=== PATIENT | male | born 1950 | race Caucasian/White ===

== ENCOUNTER 2022-10-14 09:56 | Day surgery (SDC) | payer MEDICARE, MEDICAID ==
[~2022-10-14] VITALS: Ht 177.8 cm; Wt 67.1 kg
[2022-10-14] VITALS (9 sets, daily range): BP systolic 115–168; BP diastolic 69–95; PULSE 77–87; RESP 16; TEMP 97.6; O2SAT 93–97
[~2022-10-14 09:56] MED LIST: ATEN25TA PO; ATOR20TA66 PO; BICA50TA48 PO; BUSP10TA10 PO; LOSA50TA64 PO; MIRT-87 PO; NICO-687 TD; NITR0.4T51 SL; OXYB5TAB16 PO; SPIIN INH; TRAM50TA2 PO; TRAZ-251 PO; VORT20TA PO
[2022-10-14] MEDS ORDERED: LORazepam 0.5 MG tablet PO PRN (10:35)
[2022-10-14] MEDS ORDERED: diphenhydrAMINE 25mg capsule PO PRN (10:35)
[2022-10-14] MEDS ORDERED: normal saline 1,000 ML IV SCH (10:35)
[2022-10-14] MEDS ORDERED: NITR0.4T48 SL (11:14)
[2022-10-14] MEDS ORDERED: MIRT-88 PO (11:14)
[2022-10-14] MEDS ORDERED: LOSA25TA96 PO (11:14)
[2022-10-14] MEDS ORDERED: METO-411 PO (11:14)
[2022-10-14] MEDS ORDERED: BREX1TAB PO (11:14)
[2022-10-14] MEDS ORDERED: CARB-13 PO (11:14)
[2022-10-14] MEDS ORDERED: TRAZ-256 PO (11:14)
[2022-10-14] MEDS ORDERED: VORT5TAB PO (11:14)
[2022-10-14] MEDS ORDERED: APIX5TAB3 PO (11:14)
[2022-10-14] MEDS ORDERED: SIMV-45 PO (11:14)
[2022-10-14] MEDS ORDERED: FLUT1BLS16 INH (11:20)
[2022-10-14] MEDS ORDERED: LIDOcaine 1% (10mg/ml) 2ml vial ONE (11:39)
[2022-10-14] MEDS ORDERED: verapamil 2.5 mg/ml inj IV ONE (11:39)
[2022-10-14] MEDS ORDERED: fentaNYL/PF 50MCG/1 ML 2ML syringe ONE (11:40)
[2022-10-14] MEDS ORDERED: midazolam 1 mg/ML 2ml injection ONE ×2 (11:40→12:33)
[2022-10-14] MEDS ORDERED: heparin 1,000unit/ml 10ml vial 10 ML ONE (11:40)
[2022-10-14] MEDS ORDERED: iohexol 350MG/ML 100ml bottle IV ONE (11:40)
[2022-10-14] MEDS ORDERED: nitroGLYCERIN 500mcg/5mL D5W 5 ML IV ONE (11:41)
[2022-10-14] MEDS ORDERED: LIDOcaine 1% (10mg/ml)w/preservative inj. 20ml MDV ONE (12:19)
[2022-10-14] MEDS ORDERED: HYDROcodone/acetaminophen 10/325mg tab PO PRN (13:20)
[2022-10-14] MEDS ORDERED: HYDROcodone/acetaminophen 5mg/325mg tablet PO PRN (13:20)
== END 2022-10-14 15:02 | disposition home or self-care (01) ==
LOC: SSTAY O 09:56
PROVIDERS: ATTEND Student in an Organized Health Care Education/Training Program
DX: R94.39 Abnormal result of other cardiovascular function study (principal); I25.10 Atherosclerotic heart disease of native coronary artery without angina pectoris; E78.5 Hyperlipidemia, unspecified; I10 Essential (primary) hypertension; F32.A Depression, unspecified; I48.0 Paroxysmal atrial fibrillation; J44.9 Chronic obstructive pulmonary disease, unspecified; I35.1 Nonrheumatic aortic (valve) insufficiency; I73.9 Peripheral vascular disease, unspecified; Z85.46 Personal history of malignant neoplasm of prostate; F17.290 Nicotine dependence, other tobacco product, uncomplicated; Z79.899 Other long term (current) drug therapy
CPT/HCPCS: 93005; 93458; 99152; J1644; J2250; J3010; J3490; J7030; Q0163; Q9967; A6258; A6402; C1894

== ENCOUNTER 2024-02-19 10:40 | Day surgery (SDC) | payer MEDICARE, MEDICAID ==
[2024-02-15 15:26] LABS: BASOPHILS # (AUTO) 0.1 X10'3 (0-0.2); BASOPHILS % (AUTO) 1.3 % (0-1); EOSINOPHILS # (AUTO) 0.1 X10'3 (0-0.9); EOSINOPHILS % (AUTO) 1.5 % (0-6); LYMPHOCYTES # (AUTO) 2.2 X10'3 (1.1-4.8); LYMPHOCYTES % (AUTO) 26.2 % (21-51); MEAN CORPUSCULAR HEMOGLOBIN 31.3 PG (27.0-31.0); MEAN CORPUSCULAR HGB CONC 33.6 g/dL (33.0-36.5); MEAN PLATELET VOLUME 7.5 FL (7.4-10.4); MONOCYTES # (AUTO) 0.7 X10'3 (0-0.9); MONOCYTES % (AUTO) 8.3 % (2-12); NEUTROPHILS # (AUTO) 5.1 X10'3 (1.8-7.7); NEUTROPHILS % (AUTO) 62.7 % (42-75); PRE OP HEMATOCRIT 45.1 % (42.0-52.0); PRE OP HEMOGLOBIN 15.2 g/dL (14.0-17.9); PRE OP PLATELET COUNT 381 X10'3 (140-440); PRE OP WHITE BLOOD COUNT 8.2 10'3 (4.8-10.8); RED BLOOD COUNT 4.85 X10'6 (4.70-6.10)
[2024-02-15 15:43] LABS: ALBUMIN 4.1 G/DL (3.4-5.0); ALBUMIN/GLOBULIN RATIO 1.2 (1.1-1.5); ALKALINE PHOSPHATASE 78 IU/L (46-116); BLOOD UREA NITROGEN 10 MG/DL (7-18); BUN/CREATININE RATIO 9.7 (10.0-20.0); CALCIUM 9.6 MG/DL (8.5-10.1); CHLORIDE 101 MMOL/L (99-107); CREATININE 1.03 MG/DL (0.60-1.10); PRE OP ALT 12 U/L (30-65); PRE OP ANION GAP 8 (8-16); PRE OP AST 9 U/L (10-37); PRE OP BILIRUB, TOTAL 0.9 MG/DL (0.0-1.0); PRE OP GLUCOSE 100 MG/DL (70-104); PRE OP POTASSIUM 4.6 MMOL/L (3.4-5.1); PRE OP SODIUM 137 MMOL/L (135-145); TOTAL CARBON DIOXIDE 28.4 MMOL/L (24-32); TOTAL PROTEIN 7.4 G/DL (6.4-8.2); eGFR 71 ML/MIN
[~2024-02-19] VITALS: Ht 172.7 cm; Wt 68.0 kg
[2024-02-19] VITALS (14 sets, daily range): BP systolic 100–166; BP diastolic 44–79; PULSE 64–88; RESP 14–26; TEMP 97.3; O2SAT 94–99
[2024-02-19] MEDS: ringers solution, lacted 1,000 ML IV SCH (05:30)
[2024-02-19] MEDS: DOCUMENT DATE & TIME OF BETA-BLOCKER PO ONE (05:30)
[~2024-02-19 10:40] MED LIST changes: +ALB0.5UD IH; +APIX5TAB3 PO; -ATEN25TA PO; -ATOR20TA66 PO; -BICA50TA48 PO; +BREX1TAB PO; -BUSP10TA10 PO; +CARB-13 PO; +FLEC50TA PO; +FLUT1BLS16 INH; +LOSA-415 PO; -LOSA50TA64 PO; +METO-411 PO; -MIRT-87 PO; +MIRT-88 PO; -NICO-687 TD; -NITR0.4T51 SL; -OXYB5TAB16 PO; +SIMV-45 PO; -SPIIN INH; -TRAM50TA2 PO; -TRAZ-251 PO; +TRAZ-256 PO; -VORT20TA PO; +VORT5TAB PO
[2024-02-19] MEDS: famotidine 20mg tablet PO ONE (11:39)
[2024-02-19] MEDS: albuterol 2.5 MG/3 ML nebule NEB STA (11:56)
[2024-02-19] MEDS: midazolam 1 mg/ML 2ml injection ONE (12:36)
[2024-02-19] MEDS ORDERED: fentaNYL/PF 50MCG/1 ML 2ML syringe ONE (12:55)
[2024-02-19] MEDS ORDERED: propofol inj 20 ML IV ONE (12:55)
[2024-02-19] MEDS ORDERED: midazolam 1 mg/ML 2ml injection ONE (12:55)
[2024-02-19] MEDS ORDERED: sevoflurane 250ml liquid IH ONE (13:02)
[2024-02-19] MEDS ORDERED: morphine 4 MG/ML inj SYRINge IV PRN (13:35)
[2024-02-19] MEDS ORDERED: meperidine/PF 25mg/ml syringe IV PRN ×3 (13:35)
[2024-02-19] MEDS ORDERED: morphine 2 MG/ML inj. syringe IV PRN (13:35)
[2024-02-19] MEDS ORDERED: ondansetron/PF 4mg/2ml inj IV PRN (13:35)
[2024-02-19] MEDS ORDERED: proCHLORperazine 10 MG/2 ml inj IV PRN (13:35)
[2024-02-19] MEDS ORDERED: ringers solution, lacted 1,000 ML IV SCH (13:35)
[2024-02-19] MEDS ORDERED: dexamethasone sod phosphate 4mg/ml inj. ONE (13:47)
[2024-02-19] MEDS ORDERED: rocuronium 10mg/ml inj IV ONE (13:47)
[2024-02-19] MEDS ORDERED: neostigmine methylsulfate 1 MG/ML 10ml vial ONE (14:00)
[2024-02-19] MEDS ORDERED: glycopyrrolate 0.2mg/ml inj ONE (14:00)
== END 2024-02-19 15:43 | disposition home or self-care (01) ==
LOC: PAS 10:40
PROVIDERS: ATTEND Internal Medicine Critical Care Medicine
DX: J98.4 Other disorders of lung (principal); Z79.899 Other long term (current) drug therapy; Z79.82 Long term (current) use of aspirin; Z80.1 Family history of malignant neoplasm of trachea, bronchus and lung; I10 Essential (primary) hypertension; J43.9 Emphysema, unspecified; I48.91 Unspecified atrial fibrillation; G20.A1 Parkinson's disease without dyskinesia, without mention of fluctuations; F17.210 Nicotine dependence, cigarettes, uncomplicated; F32.A Depression, unspecified
CPT/HCPCS: 31627; 31628; 31629; 31653; 36415; 71250; 80053; 82948; 85025; 87015; 87070; 87116; 87206; 94640; 94760; A4615; A4618; J1100; J2250; J2405; J2704; J2710; J3010; J3490; J7120; Z7506; Z7508; Z7512; Z7610; 31622; 31624; 31625; 31654; 88173; 88305; 88312; 88342

== ENCOUNTER 2024-04-25 08:30 | Inpatient (IN) | payer MEDICARE, MEDICAID ==
[2024-04-25] VITALS (27 sets, daily range): BP systolic 91–161; BP diastolic 42–117; PULSE 62–177; RESP 16–39; TEMP 97.7–97.9; O2SAT 94–99
[~2024-04-25] VITALS: Ht 177.8 cm; Wt 73.3 kg
[~2024-04-25 08:30] MED LIST changes: +LIDOcaine 1% 30ml preserv. free vial ONE; +heparin 1,000unit/ml 10ml vial 10 ML ONE; +iohexol 350MG/ML 100ml bottle IV ONE; +nitroGLYCERIN 500mcg/5mL D5W 5 ML IV ONE; +verapamil 2.5 mg/ml inj IV ONE
[2024-04-25] MEDS: HEPARIN DRIP-CARDIAC**PHARMACIST-TO-DOSE IV ONE (08:40)
[2024-04-25] MEDS ORDERED: heparin 10,000 units/1 ML INJ IV PRN (08:55)
[2024-04-25] MEDS ORDERED: heparin 10,000 units/1 ML INJ IV ONE (08:55)
[2024-04-25] MEDS ORDERED: heparin 25,000 UNIT/250ml bag 250 ML IV PRN (08:55)
[2024-04-25 08:59] LABS: BASOPHILS # (AUTO) 0.1 X10'3 (0-0.2); BASOPHILS % (AUTO) 0.6 % (0-1); EOSINOPHILS % (AUTO) 0.2 % (0-6); HEMATOCRIT 39.6 % (42.0-52.0); LYMPHOCYTES # (AUTO) 1.3 X10'3 (1.1-4.8); LYMPHOCYTES % (AUTO) 7.3 % (21-51); MEAN CORPUSCULAR HEMOGLOBIN 30.7 PG (27.0-31.0); MEAN CORPUSCULAR HGB CONC 32.7 g/dL (33.0-36.5); MEAN CORPUSCULAR VOLUME 93.9 FL (78-98); MEAN PLATELET VOLUME 8.1 FL (7.4-10.4); MONOCYTES % (AUTO) 5.7 % (2-12); NEUTROPHILS % (AUTO) 86.2 % (42-75); PLATELET COUNT 284 X10'3 (140-440); RED BLOOD COUNT 4.22 X10'6 (4.70-6.10); RED CELL DISTRIBUTION WIDTH 14.6 % (11.5-14.5); WHITE BLOOD COUNT 17.4 X10'3 (4.5-11.0)
[2024-04-25] MEDS ORDERED: midazolam 1 mg/ML 2ml injection ONE ×3 (09:03→17:31)
[2024-04-25] MEDS ORDERED: fentaNYL/PF 50MCG/1 ML 2ML syringe ONE ×2 (09:03→17:00)
[2024-04-25 09:06] LABS: ALANINE AMINOTRANSFERASE 22 U/L (12-78); ALBUMIN 3.3 G/DL (3.4-5.0); ALKALINE PHOSPHATASE 101 IU/L (46-116); ANION GAP 9 (8-16); ASPARTATE AMINO TRANSFERASE 29 U/L (10-37); BILIRUBIN,TOTAL 0.8 MG/DL (0.1-1.0); BLOOD UREA NITROGEN 18 MG/DL (7-18); BUN/CREATININE RATIO 20.7 (10.0-20.0); CALCIUM 8.9 MG/DL (8.5-10.1); CHLORIDE 107 MMOL/L (99-107); CREATININE 0.87 MG/DL (0.60-1.10); GLUCOSE 114 MG/DL (70-104); POTASSIUM 4.5 MMOL/L (3.5-5.1); SODIUM 139 MMOL/L (135-145); TOTAL CARBON DIOXIDE 23.4 MMOL/L (24-32); TOTAL PROTEIN 6.5 G/DL (6.4-8.2); eCRCL 77 ML/MIN; eGFR 86 ML/MIN
[2024-04-25 09:13] LABS: PRO BRAIN NATRIURETIC PEPTIDE 8750 PG/ML (0-125)
[2024-04-25 09:35] LABS: APTT 47 SECONDS (22-32); PROTHROMBIN TIME 10.3 SECONDS (9.0-12.0)
[2024-04-25] MEDS ORDERED: amiodarone 50MG/ML inj IV ONE (10:00)
[2024-04-25] MEDS: amiodarone 150mg/dext, iso-os 100 ML IV STA (13:02)
[2024-04-25] MEDS: amiodarone/D5 360MG/200ML BAG 200 ML IV SCH (13:14)
[2024-04-25] MEDS ORDERED: CHOL100046 PO (13:45)
[2024-04-25] MEDS ORDERED: ALBU18HF2 INH (13:45)
[2024-04-25] MEDS ORDERED: CYAN25003 PO (13:45)
[2024-04-25 13:46] LABS: APTT 43 SECONDS (22-32)
[2024-04-25] MEDS ORDERED: albuterol 2.5 MG/3 ML nebule NEB PRN (14:00)
[2024-04-25] MEDS ORDERED: acetaminophen 325mg tablet PO PRN (15:20)
[2024-04-25] MEDS ORDERED: magnesium hydroxide 30ml (MOM) UD suspension PO PRN (15:20)
[2024-04-25] MEDS ORDERED: magnesium Cl slow-release 64mg tablet PO PRN (15:20)
[2024-04-25] MEDS ORDERED: potassium Cl 20 mEq SR tablet PO PRN (15:20)
[2024-04-25] MEDS ORDERED: ondansetron/PF 4mg/2ml inj IV PRN ×2 (15:20→19:40)
[2024-04-25] MEDS ORDERED: magnesium sulf-water 2g/50mL 50 ML IV PRN (15:20)
[2024-04-25] MEDS ORDERED: potassium Cl 40MEQ/1/2NS 520ml 520 ML IV PRN (15:20)
[2024-04-25] MEDS ORDERED: mag hydrox/Alum hydrox/simeth 30ml oral suspension PO PRN (15:20)
[2024-04-25] MEDS ORDERED: magnesium sulf-water 4G/100mL 100 ML IV PRN (15:20)
[2024-04-25] MEDS ORDERED: LIDOcaine 1% 30ml preserv. free vial ONE (17:00)
[2024-04-25] MEDS ORDERED: iohexol 350MG/ML 100ml bottle IV ONE ×2 (17:00→17:32)
[2024-04-25] MEDS: carbidopa/levodopa 10/100mg tab PO SCH (17:00)
[2024-04-25] MEDS ORDERED: metoprolol tartrate 1mg/ml inj IV ONE ×2 (18:08→22:40)
[2024-04-25] MEDS ORDERED: proCHLORperazine 10 MG/2 ml inj IV PRN (19:40)
[2024-04-25] MEDS ORDERED: nitroGLYCERIN 0.4mg SUBLingual tab SL PRN (19:40)
[2024-04-25] MEDS ORDERED: FLEC50TA3 PO (19:47)
[2024-04-25] MEDS ORDERED: CYAN25006 SL (19:47)
[2024-04-25] MEDS ORDERED: flecainide 50mg tablet PO SCH (20:00)
[2024-04-25] MEDS: K and/or MAG REPLACEMENT MC SCH (20:00)
[2024-04-25] MEDS ORDERED: metoprolol succinate 25mg (24-HOUR) SR. Tablet PO SCH (20:00)
[2024-04-25 20:15] LABS: APTT 25 SECONDS (22-32)
[2024-04-25 21:02] LABS: CHOL/HDL RATIO 2.6 (0.00-4.99); CHOLESTEROL 137 MG/DL (0-200); HDL CHOLESTEROL 53 MG/DL (35-60); LDL CHOLESTEROL 64 MG/DL (50-100); TRIGLYCERIDES 100 MG/DL (20-135)
[2024-04-25] MEDS: traZODone 150mg tablet PO SCH (21:23)
[2024-04-25] MEDS: metoprolol tartrate 25mg tablet PO SCH (21:24)
[2024-04-25] MEDS: mirtazapine 15mg tablet PO SCH (21:25)
[2024-04-25] MEDS: simvastatin 20mg tablet PO SCH (21:25)
[2024-04-26] VITALS (14 sets, daily range): BP systolic 85–112; BP diastolic 48–88; PULSE 58–150; RESP 16–35; TEMP 97.3–97.9; O2SAT 95–99
[2024-04-26] MEDS: amiodarone/D5 360MG/200ML BAG 200 ML IV SCH (05:07)
[2024-04-26 07:02] LABS: BASOPHILS # (AUTO) 0.1 X10'3 (0-0.2); BASOPHILS % (AUTO) 0.7 % (0-1); EOSINOPHILS # (AUTO) 0.1 X10'3 (0-0.9); HEMATOCRIT 39.8 % (42.0-52.0); HEMOGLOBIN 13.4 g/dl (14.0-17.9); LYMPHOCYTES # (AUTO) 2.2 X10'3 (1.1-4.8); LYMPHOCYTES % (AUTO) 18.1 % (21-51); MEAN CORPUSCULAR HEMOGLOBIN 31.7 PG (27.0-31.0); MEAN CORPUSCULAR HGB CONC 33.7 g/dL (33.0-36.5); MEAN CORPUSCULAR VOLUME 94.1 FL (78-98); MEAN PLATELET VOLUME 8.6 FL (7.4-10.4); MONOCYTES # (AUTO) 0.9 X10'3 (0-0.9); MONOCYTES % (AUTO) 7.5 % (2-12); NEUTROPHILS # (AUTO) 8.7 X10'3 (1.8-7.7); NEUTROPHILS % (AUTO) 72.7 % (42-75); PLATELET COUNT 302 X10'3 (140-440); RED BLOOD COUNT 4.22 X10'6 (4.70-6.10); RED CELL DISTRIBUTION WIDTH 14.9 % (11.5-14.5); WHITE BLOOD COUNT 11.9 X10'3 (4.5-11.0)
[2024-04-26 07:34] LABS: ALBUMIN 3.3 G/DL (3.4-5.0); ANION GAP 11 (8-16); BLOOD UREA NITROGEN 14 MG/DL (7-18); CALCIUM 8.7 MG/DL (8.5-10.1); CHLORIDE 104 MMOL/L (99-107); GLUCOSE 111 MG/DL (70-104); MAGNESIUM 1.8 MG/DL (1.5-2.4); POTASSIUM 3.7 MMOL/L (3.5-5.1); SODIUM 140 MMOL/L (135-145); TOTAL CARBON DIOXIDE 25.4 MMOL/L (24-32); eCRCL 67 ML/MIN; eGFR 73 ML/MIN
[2024-04-26] MEDS: cholecalciferol (vitamin D3) 1,000 unit (25mcg) tablet PO SCH (07:42)
[2024-04-26] MEDS: cyanocobalamin 500mcg tablet PO SCH (07:45)
[2024-04-26] MEDS: flecainide 50mg tablet PO SCH (07:45)
[2024-04-26] MEDS: apixaban 5mg tablet PO SCH (07:45)
[2024-04-26] MEDS: Fluticasone/Umeclidin/Vilanter (Trelegy Ellipta 200-62.5-25) IH SCH (08:00)
[2024-04-26] MEDS: vortioxetine HBr tablet 5 MG TABLET PO SCH (08:00)
[2024-04-26] MEDS: losartan 50mg tablet PO SCH (08:19)
[2024-04-26] MEDS: amiodarone 200mg tablet PO SCH ×2 (12:21→19:37)
[2024-04-26] MEDS: furosemide 20MG tablet PO SCH (12:21)
[2024-04-27] VITALS (13 sets, daily range): BP systolic 86–131; BP diastolic 58–84; PULSE 64–138; RESP 16–20; TEMP 97–97.9; O2SAT 93–99
[2024-04-27 06:41] LABS: BASOPHILS # (AUTO) 0.1 X10'3 (0-0.2); BASOPHILS % (AUTO) 0.8 % (0-1); EOSINOPHILS # (AUTO) 0.2 X10'3 (0-0.9); EOSINOPHILS % (AUTO) 2.2 % (0-6); HEMATOCRIT 36.7 % (42.0-52.0); HEMOGLOBIN 12.6 g/dl (14.0-17.9); LYMPHOCYTES # (AUTO) 1.1 X10'3 (1.1-4.8); LYMPHOCYTES % (AUTO) 13.7 % (21-51); MEAN CORPUSCULAR HEMOGLOBIN 32.2 PG (27.0-31.0); MEAN CORPUSCULAR HGB CONC 34.5 g/dL (33.0-36.5); MEAN CORPUSCULAR VOLUME 93.6 FL (78-98); MEAN PLATELET VOLUME 8.3 FL (7.4-10.4); MONOCYTES # (AUTO) 0.7 X10'3 (0-0.9); MONOCYTES % (AUTO) 8.6 % (2-12); NEUTROPHILS # (AUTO) 6.1 X10'3 (1.8-7.7); NEUTROPHILS % (AUTO) 74.7 % (42-75); PLATELET COUNT 231 X10'3 (140-440); RED BLOOD COUNT 3.92 X10'6 (4.70-6.10); RED CELL DISTRIBUTION WIDTH 14.3 % (11.5-14.5); WHITE BLOOD COUNT 8.2 X10'3 (4.5-11.0)
[2024-04-27 07:10] LABS: ALBUMIN 2.7 G/DL (3.4-5.0); ANION GAP 8 (8-16); BLOOD UREA NITROGEN 16 MG/DL (7-18); CALCIUM 8.1 MG/DL (8.5-10.1); CHLORIDE 108 MMOL/L (99-107); CREATININE 0.84 MG/DL (0.60-1.10); GLUCOSE 89 MG/DL (70-104); MAGNESIUM 1.8 MG/DL (1.5-2.4); POTASSIUM 3.4 MMOL/L (3.5-5.1); SODIUM 140 MMOL/L (135-145); TOTAL CARBON DIOXIDE 24.1 MMOL/L (24-32); eCRCL 80 ML/MIN; eGFR 89 ML/MIN
[2024-04-27] MEDS: EMPAGLIFLOZIN 10 MG TABLET PO SCH (07:14)
[2024-04-27] MEDS: potassium Cl 20 mEq SR tablet PO PRN (07:15)
[2024-04-27] MEDS: budesonide 0.5mg/2ml UD nebule IH SCH (12:10)
[2024-04-27] MEDS ORDERED: ipratropium/albuterol 3ml nebule NEB PRN (12:10)
[2024-04-27] MEDS: metoprolol succinate 25mg (24-HOUR) SR. Tablet PO SCH (19:18)
[2024-04-27] MEDS ORDERED: metoprolol tartrate 25mg tablet PO SCH (20:00)
[2024-04-28] VITALS (7 sets, daily range): BP systolic 90–146; BP diastolic 57–87; PULSE 57–84; RESP 16–20; TEMP 97.3–97.8; O2SAT 91–99
[2024-04-28 07:04] LABS: BASOPHILS % (AUTO) 0.6 % (0-1); EOSINOPHILS # (AUTO) 0.2 X10'3 (0-0.9); EOSINOPHILS % (AUTO) 2.8 % (0-6); HEMATOCRIT 36.3 % (42.0-52.0); HEMOGLOBIN 12.3 g/dl (14.0-17.9); LYMPHOCYTES # (AUTO) 1.2 X10'3 (1.1-4.8); LYMPHOCYTES % (AUTO) 14.8 % (21-51); MEAN CORPUSCULAR HGB CONC 33.8 g/dL (33.0-36.5); MEAN CORPUSCULAR VOLUME 94.5 FL (78-98); MEAN PLATELET VOLUME 8.4 FL (7.4-10.4); MONOCYTES # (AUTO) 0.9 X10'3 (0-0.9); MONOCYTES % (AUTO) 11.3 % (2-12); NEUTROPHILS # (AUTO) 5.7 X10'3 (1.8-7.7); NEUTROPHILS % (AUTO) 70.5 % (42-75); PLATELET COUNT 250 X10'3 (140-440); RED BLOOD COUNT 3.84 X10'6 (4.70-6.10); RED CELL DISTRIBUTION WIDTH 14.5 % (11.5-14.5); WHITE BLOOD COUNT 8.1 X10'3 (4.5-11.0)
[2024-04-28 07:18] LABS: ALBUMIN 2.8 G/DL (3.4-5.0); ANION GAP 8 (8-16); BLOOD UREA NITROGEN 17 MG/DL (7-18); BUN/CREATININE RATIO 17.9 (10.0-20.0); CALCIUM 8.3 MG/DL (8.5-10.1); CHLORIDE 105 MMOL/L (99-107); CREATININE 0.95 MG/DL (0.60-1.10); GLUCOSE 94 MG/DL (70-104); MAGNESIUM 1.9 MG/DL (1.5-2.4); SODIUM 140 MMOL/L (135-145); TOTAL CARBON DIOXIDE 26.6 MMOL/L (24-32); eCRCL 70 ML/MIN; eGFR 77 ML/MIN
[2024-04-28] MEDS ORDERED: LOSA-415 PO (15:25)
[2024-04-28] MEDS ORDERED: EMPA10TA PO (15:25)
[2024-04-28] MEDS ORDERED: AMI200T PO (15:25)
== END 2024-04-28 17:42 | disposition home health service (06) | DRG 280 ==
LOC: ER 08:30 → SSTAY O 10:17 → ER 13:13 → PCU 3S 13:14
PROVIDERS: ADMIT Internal Medicine Interventional Cardiology; ATTEND Internal Medicine Interventional Cardiology
PROC: 5A2204Z Restoration of Cardiac Rhythm, Single (ICD-10-PCS; principal; 2024-04-25)
PROC: 4A023N7 Measurement of Cardiac Sampling and Pressure, Left Heart, Percutaneous Approach (ICD-10-PCS; 2024-04-25)
PROC: B2111ZZ Fluoroscopy of Multiple Coronary Arteries using Low Osmolar Contrast (ICD-10-PCS; 2024-04-25)
DX: I21.09 ST elevation (STEMI) myocardial infarction involving other coronary artery of anterior wall (principal); I50.21 Acute systolic (congestive) heart failure; J96.91 Respiratory failure, unspecified with hypoxia; J44.1 Chronic obstructive pulmonary disease with (acute) exacerbation; I51.81 Takotsubo syndrome; I35.1 Nonrheumatic aortic (valve) insufficiency; I48.0 Paroxysmal atrial fibrillation; F17.210 Nicotine dependence, cigarettes, uncomplicated; E87.6 Hypokalemia; I71.20 Thoracic aortic aneurysm, without rupture, unspecified; E78.5 Hyperlipidemia, unspecified; I25.10 Atherosclerotic heart disease of native coronary artery without angina pectoris; F32.A Depression, unspecified; I73.9 Peripheral vascular disease, unspecified; J44.9 Chronic obstructive pulmonary disease, unspecified; Z79.01 Long term (current) use of anticoagulants; Z79.899 Other long term (current) drug therapy; Z85.46 Personal history of malignant neoplasm of prostate
CPT/HCPCS: 36415; 71045; 80048; 80053; 80061; 83735; 83880; 84443; 84484; 85025; 85610; 85730; 87081; 93005; 93306; 93458; 94640; 94760; 97116; 97161; 97530; 99152; 99153; 99291; A4615; A6258; A6590; C1751; C1760; C1894; G0378; J0282; J1644; J2003; J2250; J3010; J3490; J7030; Q9967